=== PATIENT | male | born 1990 | race Hispanic/Latino ===

== ENCOUNTER → 2017-12-13 | Outpatient (CLI) | payer BC | END | disposition home or self-care (01) | LOC: OIH 11:03 | PROVIDERS: ATTEND Family Medicine | DX: M54.5 Low back pain (principal); R07.9 Chest pain, unspecified | CPT/HCPCS: 71046; 72100 ==

== ENCOUNTER → 2018-11-28 | Outpatient (CLI) | payer OTHER | END | disposition home or self-care (01) | LOC: RAH 09:36 | PROVIDERS: ATTEND Family Medicine | DX: K76.0 Fatty (change of) liver, not elsewhere classified (principal) | CPT/HCPCS: 76700 ==

== ENCOUNTER 2019-11-21 10:28 | Inpatient (IN) | payer SELFPAY ==
[2019-11-21] MEDS ORDERED: GADODIAMIDE 10 MMOL/20 ML VIAL IV ONE (11:41)
[2019-11-21 11:50] LABS: BASOPHILS % (AUTO) 0.4 % (0.0-5.0); EOSINOPHILS % (AUTO) 0.3 % (0.0-8.0); HEMATOCRIT 46.6 % (42-54); LYMPHOCYTES % (AUTO) 18.6 % (21.0-51.0); MEAN CORPUSCULAR HEMOGLOBIN 28.1 pg (27.0-33.0); MEAN CORPUSCULAR HGB CONC 33.9 g/dL (32.0-36.0); MEAN CORPUSCULAR VOLUME 82.9 fL (79-99); MONOCYTES % (AUTO) 6.1 % (3.0-13.0); NEUTROPHILS % (AUTO) 74.1 % (40.0-77.0); PLATELET COUNT (AUTO) 291 K/uL (130-400); RED BLOOD CELL COUNT(AUTO) 5.62 MIL/uL (4.50-6.20); WHITE BLOOD COUNT (AUTO) 13.6 K/uL (4.8-10.8)
[2019-11-21 12:03] LABS: POTASSIUM 3.2 mmol/L (3.5-5.1)
[2019-11-21 12:09] LABS: ALBUMIN 3.8 g/dL (3.5-5.0); BILIRUBIN,TOTAL 0.4 mg/dL (0.2-1.0); TOTAL PROTEIN, SERUM 8.9 g/dL (6.0-8.3)
[2019-11-21] MEDS ORDERED: ONDANSETRON HCL 4 MG/2 ML VIAL ONE ×2 (12:35→18:10)
[2019-11-21] MEDS ORDERED: POTASSIUM CHLORIDE 20 MEQ ERTAB PO ONE (12:36)
[2019-11-21] MEDS ORDERED: SODIUM CHLORIDE 0.9% 1000ML 1,000 ML IV ONE (12:36)
[2019-11-21] MEDS ORDERED: KETAMINE HCL 100 MG/ML 5ML VIAL IJ ONE (13:06)
[2019-11-21] MEDS ORDERED: SODIUM CHLORIDE 0.9% 50 ML IV ONE (13:07)
[2019-11-21 14:06] LABS: APPEARANCE,URINE Clear (CLEAR); BILIRUBIN,URINE Negative (NEGATIVE); COLOR,URINE Yellow (YELLOW); GLUCOSE, URINE (UA) Negative (NEGATIVE); KETONES,URINE Trace mg/dL (NEGATIVE); LEUKOCYTE ESTERASE ,URINE Negative (NEGATIVE); NITRATE,URINE Negative (NEGATIVE); OCCULT BLOOD,URINE Negative (NEGATIVE); PH,URINE 6.5 (5.0-8.0); PROTEIN,URINE Negative (NEGATIVE)
[2019-11-21 14:13] LABS: AMPHET/METH SCREEN,URINE NEGATIVE (NEGATIVE); BARBITURATE SCREEN, URINE NEGATIVE (NEGATIVE); BENZODIAZEPINES SCREEN,URINE NEGATIVE (NEGATIVE); CANNABINOID SCREEN,URINE NEGATIVE (NEGATIVE); COCAINE SCREEN,URINE NEGATIVE (NEGATIVE); OPIATE SCREEN,URINE NEGATIVE (NEGATIVE); PHENCYCLIDINE SCREEN,URINE NEGATIVE (NEGATIVE)
[2019-11-21] MEDS ORDERED: METOCLOPRAMIDE 10 MG/2 ML VIAL ONE (14:13)
[2019-11-21] MEDS ORDERED: DiphenhydrAMINE HCL 50 MG/ML VIAL ONE (14:14)
[2019-11-21] MEDS ORDERED: METHYLPREDNISOLONE SOD SUCC 125MG/2ML VIAL ONE (14:14)
[2019-11-21] MEDS ORDERED: KETOROLAC TROMETHAMINE 30MG/ML ONE (14:14)
[2019-11-21 14:20] LABS: BACTERIA,URINE Rare /HPF (None Seen); RBC,URINE 0-1 /HPF (0-1); SQUAMOUS EPITHELIAL CELL,UR Rare /HPF (0-2); WBC,URINE 0-1 /HPF (0-1)
[2019-11-21 14:21] LABS: MUCUS,URINE Rare LPF (None Seen)
[2019-11-21] MEDS ORDERED: ACETAMINOPHEN EXTRA STRENGTH 500 MG TABLET ONE (16:23)
[2019-11-21] MEDS ORDERED: DiphenhydrAMINE HCL 50 MG/ML VIAL IVP PRN (17:30)
[2019-11-21] MEDS ORDERED: DIPHENHYDRAMINE HCL 25 MG CAPSULE PO PRN (17:30)
[2019-11-21] MEDS ORDERED: ZOLPIDEM TARTRATE 5 MG TAB PO PRN (17:30)
[2019-11-21] MEDS ORDERED: SODIUM CHLORIDE 0.9% 1000ML 1,000 ML IV SCH (17:30)
[2019-11-21] MEDS ORDERED: CLONIDINE HCL 0.1 MG TABLET PO PRN (17:30)
[2019-11-21] MEDS ORDERED: MAG HYDROX/AL HYDROX/SIMETH ES 30 ML SUSP UDCUP PO PRN (17:30)
[2019-11-21] MEDS ORDERED: GUAIFENESIN-DM 200/20 MG 10 ML PO PRN (17:30)
[2019-11-21] MEDS ORDERED: NITROGLYCERIN 0.4 MG SL TAB SL PRN (17:30)
[2019-11-21] MEDS ORDERED: ACETAMINOPHEN 325 MG TAB PO PRN ×2 (17:30)
[2019-11-21] MEDS ORDERED: ONDANSETRON HCL 4 MG/2 ML VIAL IVP PRN (17:30)
[2019-11-21] MEDS ORDERED: GUAIFENESIN SUGAR-FREE 100 MG/5 ML UDCUP PO PRN (17:30)
[2019-11-21] MEDS ORDERED: TRAMADOL HCL 50 MG TABLET PO PRN (17:30)
[2019-11-21] MEDS ORDERED: LACTULOSE 20 GM/30 ML UDCUP PO PRN (17:30)
--- NOTE | 2019-11-21 19:44 | NUR ---
PATIENT RECEIVED FROM [place], REPORT RECEIVED BY WILFRID THOMPSON. PATIENT IS DROWSY, SLOW TO ANSWER QUESTIONS. HE IS ALERT TO SELF, DATE, AND PLACE. 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 PATIENT NOTED TO BE VERY UNSTEADY WHILE STANDING, AT HIGH RISK FOR FALLS AND INJURY. PATIENT IS ABLE TO ANSWER THAT HE IS IN [facility] AND THAT HE CAME IN D/T SEVERE HEADACHE. I SPOKE WITH PT'S FATHER AND HE STATES CURRENT MOOD AND STATUS IS NOT HIS NORMAL. POC DISCUSSED WITH HIM. WILFRID THOMPSON, DID SPEAK WITH DR. FOSTER AND HE GAVE HIS RECOMMENDATIONS. PATIENT DID GET UP ON HIS OWN AND SAT AT SIDE OF BED. I INSTRUCTED HIM NOT TO GET UP D/T HEAVILY MEDICATED. HE VOICED "OKAY". 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 WILL CONT TO MONITOR CLOSELY. Addendum: 11/21/19 at 1951 by VIKTOR AZUL RN RN Amended: Links added.
[2019-11-21 20:00] VITALS: BP 142/87
--- NOTE | 2019-11-21 21:25 | NUR ---
ASSUMED CARE Received report from Cain Dick Rn.Pt transferred from [facility] via wheelchair,pt appears drowsy,oriented x 2.Reoriented to time and plan of care.1:1 sitter at bedside.Iv wrapped with non elastic bandage,apparently pt had pulled out his iv numerous times. Addendum: 11/21/19 at 2157 by BLAIRE LAMB RN RN Amended: Links added.
--- NOTE | 2019-11-21 22:58 | NUR ---
PATIENT WAS TRANSFERRED TO ROOM 332 FOR 1:1 SUPERVISION. I HAD SPOKEN TO PT'S SPOUSE VIA TELEPHONE AND OBTAINED ADMISSION INFORMATION FROM HER. SHE WAS ADVISED HE WAS TO BE MOVED FOR CLOSER SUPERVISION. BED SIDE REPORT WAS GIVEN TO DEEPA THOMPSON.
[2019-11-21 23:38] VITALS: BP 128/63
--- NOTE | 2019-11-21 23:55 | NUR ---
AD MATT Pt up ad matt to bathroom with assistance.He said he got dizzy for a little bit.No agitation noted.
--- NOTE | 2019-11-22 04:36 | NUR ---
CALM Pt slept fairly well.Awake,alert,oriented x 3.Calm,cooperative.
[2019-11-22 04:38] VITALS: BP 138/62
[2019-11-22 08:00] VITALS: BP 130/62
--- NOTE | 2019-11-22 09:00 | NUR ---
Chart reviewed- Including ER MD notes. Text to Dr. Knapp re: plan of care. Requesting poss Neuro consult? Awaiting call back. ACF form created and uploaded, CM interventions documented Addendum: 11/22/19 at 0903 by ARIS CARRILLO RN CM Amended: Links added.
--- NOTE | 2019-11-22 09:26 | NUR ---
order recd for neuro consult/check and Radha Rn notified
[2019-11-22] MEDS ORDERED: LIDOCAINE HCL-MPF 1% 2ML VIAL IV PRN (11:00)
[2019-11-22] MEDS ORDERED: POTASSIUM CHLORIDE 20MEQ/100ML 100 ML IV PRN (11:00)
[2019-11-22] MEDS ORDERED: POTASSIUM CHLORIDE 10% ELIXIR 20 MEQ/15 ML UDCUP PO PRN (11:00)
--- NOTE | 2019-11-22 11:00 | NUR ---
received call from lab of K of 3.0, i called dr Ward Knapp and received order for potassium protocol; i also informed him that dr Loyola has come to see the patient and i has ordered ct of head and neck; he stated that was good.
[2019-11-22] MEDS: PANTOPRAZOLE SODIUM 40 MG TABLET.DR PO SCH (11:07)
[2019-11-22] MEDS: POTASSIUM CHLORIDE 20 MEQ ERTAB PO PRN ×3 (11:08→23:09)
--- NOTE | 2019-11-22 11:55 | NUR ---
INITIAL SW spoke with patient. He states he lives with spouse, Mckenna Machado, [phone]. No home services or DME. Patient is presently employed fruit or nut picker. He is able to complete ADL's and drive. PCP is Dr. Trav Knapp. Pharmacy is [facility] located on [facility] in [place]. DCP is home. Addendum: 11/22/19 at 1158 by GABINO HERNANDEZ SS Amended: Links added.
[2019-11-22 12:00] VITALS: BP 115/69
[2019-11-22] MEDS ORDERED: IOHEXOL-350 75 ML VIAL IV ONE (13:57)
[2019-11-22 16:00] VITALS: BP 126/69
[2019-11-22] MEDS: GABAPENTIN 100 MG CAPSULE PO SCH ×2 (16:24→20:22)
[2019-11-22 19:27] VITALS: BP 122/63
[2019-11-22 23:19] VITALS: BP 123/61
[2019-11-23 03:44] VITALS: BP 124/64
[2019-11-23 04:18] LABS: BASOPHILS % (AUTO) 0.5 % (0.0-5.0); EOSINOPHILS % (AUTO) 0.8 % (0.0-8.0); LYMPHOCYTES % (AUTO) 31.3 % (21.0-51.0); MEAN CORPUSCULAR HEMOGLOBIN 27.7 pg (27.0-33.0); MEAN CORPUSCULAR HGB CONC 32.9 g/dL (32.0-36.0); MEAN CORPUSCULAR VOLUME 84.3 fL (79-99); MONOCYTES % (AUTO) 9.2 % (3.0-13.0); NEUTROPHILS % (AUTO) 57.6 % (40.0-77.0); PLATELET COUNT (AUTO) 286 K/uL (130-400); RED BLOOD CELL COUNT(AUTO) 5.34 MIL/uL (4.50-6.20); RED CELL DISTRIBUTION WIDTH 13.2 % (11.0-15.5); WHITE BLOOD COUNT (AUTO) 10.6 K/uL (4.8-10.8)
[2019-11-23 04:37] LABS: PARTIAL THROMBOPLASTIN TIME 22.9 SEC (26.3-35.5); PROTHROMBIN TIME 10.8 SEC (9.6-11.6)
[2019-11-23 04:47] LABS: ALBUMIN 3.4 g/dL (3.5-5.0); BILIRUBIN,TOTAL 0.3 mg/dL (0.2-1.0); POTASSIUM 3.6 mmol/L (3.5-5.1); TOTAL PROTEIN, SERUM 7.7 g/dL (6.0-8.3)
[2019-11-23] MEDS: POTASSIUM CHLORIDE 20 MEQ ERTAB PO PRN ×3 (05:26→15:30)
--- NOTE | 2019-11-23 05:39 | NUR ---
patient experienced no headache or dizziness overnight. vital signs normal
[2019-11-23] MEDS: GABAPENTIN 100 MG CAPSULE PO SCH ×2 (09:49→15:29)
[2019-11-23] MEDS: PANTOPRAZOLE SODIUM 40 MG TABLET.DR PO SCH (09:49)
--- NOTE | 2019-11-23 11:20 | NUR ---
dr bernardo rodrigues here to see patient; i informed him pt has had no disruptive episodes since arrival to the floor and his headache is intemittent and mild since arrival; he is aaox3 and neuro work up showed no abnormalities; he stated ok to cancel the tx tropical referral and d/c the patient home; he wrote script for neurontin per dr luna's recomendations.
--- NOTE | 2019-11-23 16:00 | NUR ---
pt stated understanding of all d/c instructions on dx headache and fact that he is to do tele communication call wednesday11-27-2019 w/ dr yosef rodrigues office; iv access removed, i called security earlier for pt belongings; pt had not left as of yet waiting for his ride to be off work; .
--- NOTE | 2019-11-23 18:53 | NUR ---
pt's ride not available till now to take him home; security was not available to bring up his belongings till 1800
== END 2019-11-23 19:00 | disposition home or self-care (01) | DRG 103 ==
LOC: EDH 10:28 → EDHIP 16:50 → OBSVTOIN 16:50 → 4DH 18:11 → 3AH 21:23
PROVIDERS: ADMIT Family Medicine; ATTEND Family Medicine
DX: G43.109 Migraine with aura, not intractable, without status migrainosus (principal); M54.9 Dorsalgia, unspecified; M79.10 Myalgia, unspecified site; R41.0 Disorientation, unspecified; E66.9 Obesity, unspecified; F39 Unspecified mood [affective] disorder; G89.29 Other chronic pain; F43.22 Adjustment disorder with anxiety; Z79.899 Other long term (current) drug therapy
CPT/HCPCS: 36415; 70496; 70498; 70551; 72131; 80053; 80305; 81001; 82948; 84132; 85025; 85610; 85730; 87040; 93005; A9579; G0378; J1200; J1885; J2405; J2765; J2930; J3480; J3490; J7030; Q9967

== ENCOUNTER 2019-12-01 04:54 | Emergency (ER) | payer OTHER ==
[2019-12-01 05:16] LABS: BASOPHILS % (AUTO) 0.4 % (0.0-5.0); EOSINOPHILS % (AUTO) 2.2 % (0.0-8.0); HEMATOCRIT 46.7 % (42-54); LYMPHOCYTES % (AUTO) 34.7 % (21.0-51.0); MEAN CORPUSCULAR HEMOGLOBIN 27.3 pg (27.0-33.0); MEAN CORPUSCULAR HGB CONC 32.5 g/dL (32.0-36.0); MONOCYTES % (AUTO) 8.3 % (3.0-13.0); PLATELET COUNT (AUTO) 282 K/uL (130-400); RED BLOOD CELL COUNT(AUTO) 5.56 MIL/uL (4.50-6.20); RED CELL DISTRIBUTION WIDTH 13.1 % (11.0-15.5); WHITE BLOOD COUNT (AUTO) 14.5 K/uL (4.8-10.8)
[2019-12-01 05:32] LABS: CREATININE 1.1 mg/dL (0.5-1.5); POTASSIUM 3.6 mmol/L (3.5-5.1)
[2019-12-01 05:34] LABS: ALBUMIN 3.8 g/dL (3.5-5.0); BILIRUBIN,TOTAL 0.6 mg/dL (0.2-1.0); TOTAL PROTEIN, SERUM 8.3 g/dL (6.0-8.3)
[2019-12-01] MEDS ORDERED: DiphenhydrAMINE HCL 50 MG/ML VIAL ONE (05:55)
[2019-12-01] MEDS ORDERED: PROCHLORPERAZINE EDISYLATE 10 MG/2 ML VIAL ONE (05:55)
[2019-12-01 06:13] LABS: AMPHET/METH SCREEN,URINE NEGATIVE (NEGATIVE); BARBITURATE SCREEN, URINE NEGATIVE (NEGATIVE); BENZODIAZEPINES SCREEN,URINE NEGATIVE (NEGATIVE); CANNABINOID SCREEN,URINE NEGATIVE (NEGATIVE); COCAINE SCREEN,URINE NEGATIVE (NEGATIVE); OPIATE SCREEN,URINE NEGATIVE (NEGATIVE); PHENCYCLIDINE SCREEN,URINE NEGATIVE (NEGATIVE)
== END 2019-12-01 07:00 | disposition home or self-care (01) ==
LOC: EDH 04:54
DX: G43.809 Other migraine, not intractable, without status migrainosus (principal); R41.82 Altered mental status, unspecified; E78.00 Pure hypercholesterolemia, unspecified; Z79.899 Other long term (current) drug therapy; Z88.0 Allergy status to penicillin
CPT/HCPCS: 36415; 70450; 80053; 80305; 82948; 85025; 93005; 96361; 96374; 96375; J0780; J1200

== ENCOUNTER 2024-04-19 11:56 | Emergency (ER) | payer SELFPAY ==
[~2024-04-19] VITALS: Ht 185.4 cm; Wt 147.9 kg
[2024-04-19] MEDS: ORPHENADRINE 60MG/2ML IM ONE (13:51)
[2024-04-19] MEDS: KETOROLAC 30MG VIAL (30MG/ML) IM ONE (13:51)
[2024-04-19] MEDS: TRIAMCINOLONE ACETONIDE 40 MG/ML 1ML VIAL IM ONE (13:51)
[2024-04-19] MEDS ORDERED: KETO10TA2 PO (14:11)
[2024-04-19] MEDS ORDERED: CYCL10TA16 PO (14:11)
[2024-04-19 14:27] VITALS: BP 124/60; PULSE 70; RESP 16; O2SAT 99
== END 2024-04-19 14:34 | disposition home or self-care (01) ==
LOC: EDH 11:56
DX: S33.5XXA Sprain of ligaments of lumbar spine, initial encounter (principal); Z79.899 Other long term (current) drug therapy; Z88.0 Allergy status to penicillin; Z88.8 Allergy status to other drugs, medicaments and biological substances; X50.9XXA Other and unspecified overexertion or strenuous movements or postures, initial encounter; Y93.E2 Activity, laundry; Y92.89 Other specified places as the place of occurrence of the external cause; Y99.8 Other external cause status
CPT/HCPCS: 99284; 96372 ×3; J3301; J1885; J2360